=== PATIENT | male | born 1945 | race Caucasian/White ===

== ENCOUNTER 2017-07-24 08:57 | Inpatient (IN) ==
--- NOTE | 2017-07-24 09:22 | Emergency Department Report ---
SOB HPI - General Chief Complaint: Shortness of Breath/Dyspnea Stated Complaint: diff breathing Time Seen by Provider: 07/24/17 09:06 Source: patient, family, old records reviewed Mode of arrival: ambulatory Limitations: no limitations - History of Present Illness 72yo man presents to the ER for dyspnea. Pt has been short of breath for the last two weeks. Has also had a cough, some congestion, and 'tightening of [his] dentures' (which is his usual sign that his allergies are acting up). Pt has not taken any medications to help his sx. He has not seen anyone else, because the doctor he used to have moved; does not go the doctor much anyway. WOP forced him to present to the ER this AM. Complaint: shortness of breath Onset (ago): week(s) (2) Severity: moderate Consistency/Duration: constant Relieving factors: nothing Exacerbating factors: lying flat, movement, coughing Associated symptoms: denies other symptoms Treatment prior to arrival: none - Related Data Home oxygen amount: none Home Medications Medication Instructions Recorded Confirmed Aspirin 325 mg PO DAILY 07/24/17 07/24/17 Allergies Allergy/AdvReac Type Severity Reaction Status Date / Time No Known Allergies Allergy Verified 07/24/17 09:03 Review of Systems All systems: reviewed and negative except as stated Respiratory: Reports: as per HPI, dyspnea PFSH Patient Stated Medical History Other HEENT Yes: wears glasses Other Cardiology Yes: dvt Other Respiratory Yes: allergies Clotting Problems Yes: dvt - Social History Smoking status: Current every day smoker Physical Exam - Limitations Limitations: no limitations - General General appearance: alert, in no apparent distress - Normal Exams: Head:: Normocephalic without trauma Eyes:: Pupils are PERRLA w/ EOMI, No scleral icterus, irritation, or foreign bodies noted Neck:: Full range of motion, without adenopathy Chest/Respirations:: Clear all nelson, with good airflow, and symmetry bilaterally Cardiovascular:: Regular rate and rhythm, without murmur or gallop, Pulses 2+ all extremities, capillary refill, <2 seconds all extremities Lymphatic:: No lymphadenopathy, or lymphedema noted (Compression stockings in place b/l) Musculoskeletal:: No tenderness, or deformity noted Integumentary:: No rashes, hives, or bruising noted Neurological:: Patient is alert, and oriented Psychiatric:: Patient exhibits, appropriate attention - ENT ENT exam: Present: mucous membranes moist, TM's normal bilaterally, normal external ear exam. Absent: normal exam, normal oropharynx (Erythematous with PND) Course - Consultations Consultation #1: Dr. Paz: Admit pt and we'll see him later today. Time: 10:11 Consultation #2: Hospitalist: Dr. Ramos will admit for obs. Time: 10:17 Vital Signs Temperature 97.4 F 07/24/17 09:03 Pulse Rate 94 07/24/17 09:03 Respiratory Rate 24 07/24/17 09:03 Blood Pressure 148/81 H 07/24/17 09:03 Pulse Oximetry 93 07/24/17 09:03 Temperature 97.4 F 07/24/17 09:03 Pulse Rate 81 07/24/17 10:00 Respiratory Rate 19 07/24/17 10:00 Blood Pressure 149/94 H 07/24/17 10:00 Pulse Oximetry 93 07/24/17 10:00 Shortness of Breath/Dyspnea - [facility] Narrative Medical decision making narrative: 72yo man with no routine primary care for the last 3-4 years, since his PCM moved away. Pt has a h/o allergic rhinitis, which he has not been treating through 'allergy season'. EKG and [CXR] c/w COPD. Pt continues to smoke. Pts BNP is elevated to 5000 today; will contact pt's father's chief marketing officer for discussion of inpt w/up and likely cath. - Differential Diagnosis Likely: acute exacerbation of chronic obstructive airways disease, community acquired pneumonia (URI, allergic rhinitis) - Medical Records Attestation: I reviewed the patient's medical records. - Lab Data Attestation: I reviewed the patient's lab results. Result diagrams: 07/24/17 09:21 07/24/17 09:21 Lab Results 07/24/17 07/24/17 Range/Units 09:21 09:21 WBC 6.9 (4.5-11.0) T/MM3 RBC 4.21 L (4.50-5.90) M/MM3 Hgb 14.1 (13.5-17.5) GM/DL Hct 41.8 (41-53) % MCV 99.3 (80-100) UM3 MCH 33.5 (26-34) UUG MCHC 33.7 (31-37) GM/DL RDW Std Deviation 49.4 (36.9-50.2) FL Plt Count 203 (130-400) T/MM3 MPV 9.2 L (9.4-12.4) UM3 Immature Gran % (Auto) 0.3 (0.0-0.5) % Neut % (Auto) 55.0 (33-66) % Lymph % (Auto) 34.6 (23-45) % Wayne % (Auto) 7.7 (0-9.0) % Eos % (Auto) 2.0 (0-4) % Baso % (Auto) 0.4 (0-2) % Neut # (Auto) 3.8 (1.8-7.7) T/MM3 Lymph # (Auto) 2.4 (1-4.8) T/MM3 Wayne # (Auto) 0.5 (0-0.8) T/MM3 Eos # (Auto) 0.1 (0-0.5) T/MM3 Baso # (Auto) 0.0 (0-0.2) T/MM3 Abs Immat Gran (auto) 0.02 (0.00-0.03) T/MM3 Turbidity < 20 (0-20) Sodium 142 (134-144) MEQ/L Potassium 4.6 (3.6-5) MEQ/L Chloride 109 H (98-107) MEQ/L Carbon Dioxide 25 (22-30) MEQ/L Anion Gap 8 (5-15) MEQ/L BUN 13.0 (9-20) MG/DL Creatinine 1.1 (0.8-1.5) MG/DL GFR Calculation 66 BUN/Creatinine Ratio 12 (6-26) RATIO Glucose 102 (75-110) MG/DL Calculated Osmolality 273 (261-280) MOSM/KG Calcium 9.4 (8.4-10.2) MG/DL Icterus Index < 2 (0-7) Troponin I 0.022 (0-0.12) ng/ml B-Natriuretic Peptide 4940 H (0-175) pg/mL Specimen Hemolysis < 15 (0-25) - Radiology Data Attestation: I reviewed the patient's radiology results. FINDINGS: The lungs are clear without evidence of focal abnormal airspace opacity. There is no pleural effusion or pneumothorax. Overlying monitoring leads. The heart size, mediastinal contours and pulmonary vascularity are within normal limits. There is no significant skeletal abnormality. IMPRESSION: No acute cardiopulmonary disease. - EKG Data EKG #1 EKG attestation: Yes: I reviewed and interpreted this EKG. EKG shows normal: sinus rhythm, intervals, QRS complexes [place]/QRS: left axis deviation Voltage: decreased voltage throughout (c/w pulm pattern) Interpretation: nonspecific ST-T wave changes Disposition Clinical Impression: Elevated brain natriuretic peptide (BNP) level COPD (chronic obstructive pulmonary disease) Qualifiers: COPD type: unspecified COPD Qualified Code(s): J44.9 - Chronic obstructive pulmonary disease, unspecified Disposition: 02 To [facility] Print Language: [place] Condition: Stable Prescriptions: No Action Aspirin 325 mg PO DAILY Referrals: Fritz Babin MD [Physician] - Time of Disposition: 10:29 - Seen By: physician
--- NOTE | 2017-07-24 10:04 | XRay Report ---
INDICATION: dyspnea PROCEDURE: CHEST 2-VIEWS UPRIGHT (PA & LAT) Encounter: Initial COMPARISON: None FINDINGS: The lungs are clear without evidence of focal abnormal airspace opacity. There is no pleural effusion or pneumothorax. Overlying monitoring leads. The heart size, mediastinal contours and pulmonary vascularity are within normal limits. There is no significant skeletal abnormality. IMPRESSION: No acute cardiopulmonary disease. .
[2017-07-24] MEDS ORDERED: FUROSEMIDE 40 MG/4 ML INJECTION IVP ONE (10:27)
[2017-07-24] MEDS ORDERED: SALINE FLUSH 10ml SYRINGE IVF PRN (10:28)
[2017-07-24 11:09] VITALS: BMI 26.6
[2017-07-24] MEDS ORDERED: ENOXAPARIN 40 MG/0.4 ML INJECTION SQ SCH (11:45)
[2017-07-24] MEDS ORDERED: ALBUTEROL/IPRATROPIUM 2.5mg-0.5mg/3ml NEB AEROSOL PRN (11:45)
--- NOTE | 2017-07-24 11:50 | History & Physical Report ---
<Peri Otero V - Last Filed: 07/24/17 11:46> History of Present Illness Date: 07/24/17 Chief complaint: dyspnea with exertion HPI: Tyler is a pleasant 72-year-old male who presented to the emergency room this morning for evaluation of dyspnea. He reports has had ongoing dyspnea for the last 2-3 weeks that is worse and present only with exertion. He reports that at rest. Symptoms seem to improve. He reports having some ALLERGY type symptoms, upper airway congestion and some tightening of his dentures which was a new symptom. Denied having any chest pain. GI complaints. Has not had any primary care for the past 2-3 years since primary care provider left [facility]. Other evaluation in the emergency room was completed. CBC was found to be normal , chemistry panel normal, troponin 0.022, proBNP 4940. Chest x-ray revealed no acute cardiopulmonary findings. On arrival to the emergency room room air saturations 93%, pulse 94, respiration rate 24, blood pressure 148/81, temperature 97.4. Given his clinical presentation of dyspnea with exertion and risk factors for cardiovascular disease. The hospitalist services were contacted and accepted patient for observation for further evaluation and treatment. Dr. Guido will be consulted for further cardiac recommendations. Review of Systems All systems PM: 10-point ROS was reviewed, no additional remarkable complaints except - EENMT Nose: Present: allergies - Respiratory Respiratory: Present: dyspnea, dyspnea on exertion PFSH Patient Stated Medical History Vascular disease- Hx peripheral vessel blockage Seasonal ALLERGIES History of DVT History of hepatitis-1966 Chronic tobacco dependence 56 years Surgical History: RLE vascular blockage with graft repair. Colonoscopy Family History: Father-alive at age 92 Currently Mother history of CVA. Sister with heart disease - Social History Smoking status: Current every day smoker Substance use type: does not use Alcohol intake frequency: does not drink Housing: house Household members: spouse Current residence: Apartment/Private Home Social history: No Current PCP (used to see Dr. Babin at [facility]) Medications Home Medications Medication Instructions Recorded Confirmed Type Aspirin 325 mg PO DAILY 07/24/17 07/24/17 History Allergies Allergy/AdvReac Type Severity Reaction Status Date / Time No Known Allergies Allergy Verified 07/24/17 09:03 Exam Vital Signs: Temperature 98.1 F 07/24/17 11:13 Pulse Rate 88 07/24/17 11:30 Respiratory Rate 30 H 07/24/17 11:30 Blood Pressure 148/64 H 07/24/17 11:13 Pulse Oximetry 94 07/24/17 11:13 Telemetry Rhythm: Sinus Rhythm Height/Weight/BMI: Height 1.78 m Weight 84.1 kg Body Mass Index 26.6 - Constitutional Present: no acute distress, well nourished, well developed - Routine HEENT Exam Eye: Present: EOMI ENT: Present: mucous membranes moist, dentition normal - Routine Neck Exam Present: supple - Routine Respiratory Exam Present: CTA bilaterally. Absent: wheezes - Routine Cardiovascular Exam Present: RRR, S1, S2. Absent: murmur - Routine Abdominal Exam Present: soft, normoactive bowel sounds, non distended. Absent: tenderness - Routine Extremities Exam Present: full ROM, normal capillary refill - Routine Back/Spine/Pelvis Exam Back/Spine: Present: full ROM - Routine Skin Exam Present: intact, dry, warm - Routine Neurological Exam Present: alert, oriented X3, CN II-XII intact - Routine Psychiatric Exam Present: normal affect, cooperative Results - Labs CBC & Chem 7: 07/24/17 09:21 07/24/17 09:21 Assessment and Plan (1) Exertional dyspnea Current visit: Yes Status: Acute (2) Tobacco dependence Current visit: Yes Status: Acute DVT Prophylaxis: Lovenox Resuscitation Status: Full Code Assessment and Plan: Impression Exertional dyspnea Chronic Tobacco dependence History of peripheral vascular disease Hx DVT Plan Admit patient to outpatient observation under care of Dr. Ramos for exertional dyspnea. Place patient on cardiac telemetry. Consultation placed with Dr. Paz for further cardiac evaluation. Will obtain echocardiogram on admission as well as CT to rule out pulmonary emboli. Scheduled DuoNeb breathing treatments 4 times a day and Pulmicort twice a day. May use Mucinex as needed. Lovenox subcutaneous daily for DVT prophylaxis. Acapella as well as RT tobacco cessation treatment. This patient has been a tobacco user for the past 56 years. Encourage patient to establish with a primary care provider for outpatient follow-up. Patient does wish to be a full code and this orders written Further orders and plan of care discussed with attending, Dr. Ramos Hospital Course Summary Disclaimer: The visit summary below is not to be considered part of the above Progress Note. Hospital Course: 07/24/17 Impression Exertional dyspnea Chronic Tobacco dependence History of peripheral vascular disease Hx DVT Plan Admit patient to outpatient observation under care of Dr. Ramos for exertional dyspnea. Place patient on cardiac telemetry. Consultation placed with Dr. Paz for further cardiac evaluation. Will obtain echocardiogram on admission as well as CT to rule out pulmonary emboli. Scheduled DuoNeb breathing treatments 4 times a day and Pulmicort twice a day. May use Mucinex as needed. Lovenox subcutaneous daily for DVT prophylaxis. Acapella as well as RT tobacco cessation treatment. This patient has been a tobacco user for the past 56 years. Encourage patient to establish with a primary care provider for outpatient follow-up. Patient does wish to be a full code and this orders written Further orders and plan of care discussed with attending, Dr. Ramos <Nile Ramos - Last Filed: 07/24/17 16:45> History of Present Illness Date: 07/24/17 Exam Vital Signs: Temperature 98.1 F 07/24/17 11:13 Pulse Rate 93 07/24/17 16:00 Respiratory Rate 33 H 07/24/17 16:00 Blood Pressure 148/64 H 07/24/17 11:13 Pulse Oximetry 93 07/24/17 15:45 Results - Labs CBC & Chem 7: 07/24/17 09:21 07/24/17 09:21 Assessment and Plan (1) Exertional dyspnea Current visit: Yes Status: Acute (2) Tobacco dependence Current visit: Yes Status: Acute Assessment and Plan: Impression Bilateral pulmonary emboli Tachycardia Exertional dyspnea Chronic Tobacco dependence History of peripheral vascular disease Hx DVT Have independently interviewed and examined patient. Chart reviewed. Cased discussed with ED physician and my MOTHER'S HELPER. Care plan developed with my supervision ; agree with above. Having exertional dyspnea over the past 3 weeks, increasing over the past 3 days. Not feeling cough or congestion. No pain with breathing. Denies f/c or viral syndrome. Not feeling chest pressure, heaviness, or palpitations. Denies edema, orthopnea, or PND. Breaths well at rest but gets very SOA with any activities. Eating well. No ab pain, nausea, or change in bowel. Seen in ED. CXR without acute infiltrate or edema. Lab benign. Maintaining oxygen saturations at rest. Placed in OBS for further Cardiopulmonary evaluation. CTA did show evidence of multiple bilateral PE. ECHO showing right heart strain. Lungs: decreased, no wheezes or crackles. No cough with expiration. CV: tachy, regular AB: soft nt/nd +BS EXT: no edema MSE: awake alert appropriate Plan: Will change admission status to inpatient secondary to findings of Bilateral PE with right heart strain. Therapeutic dose of Lovenox. Start Coumadin. Cardiac consult for CV evaluation. Monitor tele. Serial enzymes. Neb treatment of DuoNeb and Budesonide. Tobacco cessation. Monitor lab. Hospital Course Summary Disclaimer: The visit summary below is not to be considered part of the above Progress Note.
[2017-07-24] MEDS ORDERED: IOHEXOL 350mg/ml 75ml INJECTION ONE (12:00)
[2017-07-24] MEDS ORDERED: SALINE FLUSH 10ml SYRINGE ONE (12:00)
[2017-07-24] MEDS ORDERED: NS 100 ML ONE (12:00)
[2017-07-24] MEDS: GUAIFENESIN/D-METHORPHAN 600mg/30mg TABLET PO SCH ×2 (12:05→20:01)
--- NOTE | 2017-07-24 13:29 | CT Scan Report ---
Indication: Dyspnea, evaluate for PE PROCEDURE: CT angio pulm emboli: Encounter: Initial Comparison: None Technique: Axial CT pulmonary angiographic phase images were performed through the chest after the administration of intravenous contrast. Coronal and Sagittal MIP reconstructed images were created and reviewed. Automated Exposure Control and Iterative Reconstruction dose reducing techniques were utilized. Contrast: Omnipaque 350 70 mL Findings: Pulmonary arteries: Exam is diagnostic to the subsegmental pulmonary arterial level. Large amount of thrombus seen within the pulmonary arteries bilaterally. This includes thrombus in the distal right main pulmonary artery extending into the interlobar, segmental and subsegmental arteries of the right middle and lower lobe and also thrombus within the segmental and subsegmental arteries of the right upper lobe. Segmental thrombosis and subsegmental emboli also seen within the left upper and lower lobes as well. There is slight reflux of contrast into the hepatic veins and some flattening of the interventricular septum. Other findings: Mild emphysema. No focal pneumonia. No pleural effusion or pneumothorax. No pulmonary masses. The central airways are patent. No axillary or mediastinal adenopathy by CT criteria. Trace pericardial effusion. The upper abdomen shows no acute findings. Impression: Large bilateral pulmonary embolic burden with CT findings suggesting possible early right heart strain. Cardiology evaluation is recommended. Findings were discussed with the ordering clinician Peri Otero at 1325 on July 24, 2017. .
[2017-07-24] MEDS ORDERED: ENOXAPARIN 100 MG/ML INJECTION SQ SCH (13:30)
--- NOTE | 2017-07-24 15:20 | Cardiology Consult Note ---
History of Present Illness Consult date: 07/24/17 <Odalis Trejo 07/24/17 15:26> Requesting physician: Nile Ramos <Odalis Trejo 07/24/17 15:26> Consult reason: shortness of breath <Odalis Trejo 07/24/17 15:26> Chief complaint: dyspnea <Odalis Trejo 07/24/17 15:26> History of present illness: Tyler is a 72-year-old male who presented to the ED this morning for evaluation of dyspnea. He reports has had ongoing dyspnea for the last 2-3 weeks that is worse and present only with exertion. He reports that symptoms seem to improve at rest. He reports having some allergy type symptoms, upper airway congestion and some tightening of his dentures which was a new symptom. Denied having any chest pain. GI complaints. Has not had any primary care for the past 2-3 years since primary care provider left [facility]. Other evaluation in the emergency room was completed. CBC was found to be normal , chemistry panel normal, troponin 0.022, proBNP 4940. Chest x-ray revealed no acute cardiopulmonary findings. On arrival to the ED room air saturations 93%, pulse 94, respiration rate 24, blood pressure 148/81, temperature 97.4. Given his clinical presentation of dyspnea with exertion and risk factors for cardiovascular disease. The hospitalist services were contacted and accepted patient for observation for further evaluation and treatment. Dr. Guido will be consulted for further cardiac recommendations. <Odalis Trejo 07/24/17 16:56> Review of Systems - Constitutional Constitutional: Absent: chills, fatigue, fever(s) <Odalis Trejo 07/24/17 15:26> - EENMT Eyes: Absent: change in vision <Odalis Trejo 07/24/17 15:26> Balance: Absent: vertigo <Odalis Trejo 07/24/17 15:26> Nose: Present: allergies <Odalis Trejo 07/24/17 15:26> Mouth/Throat: Absent: sore throat, scratchy throat <Odalis Trejo 07/24/17 15:26> - Cardiovascular Cardiovascular: Present: dyspnea on exertion. Absent: chest pain, palpitations , syncope <Odalis Trejo 07/24/17 15:26> - Respiratory Respiratory: Present: dyspnea, dyspnea on exertion. Absent: cough <Odalis Trejo 07/24/17 15:26> - Gastrointestinal Gastrointestinal: Absent: abdominal pain, diarrhea, nausea, vomiting <Odalis Trejo 07/24/17 15:26> - Genitourinary Genitourinary: Absent: dysuria <Odalis Trejo 07/24/17 15:26> - Integumentary/Breasts Integumentary: Absent: rash <Odalis Trejo 07/24/17 15:26> - Neurological Neurological: Absent: dizziness <Odalis Trejo 07/24/17 15:26> - Endocrine Endocrine: Absent: palpitations <Odalis Trejo 07/24/17 15:26> - Allergic/Immunologic Allergic/Immunologic: Present: as per HPI <Odalis Trejo 07/24/17 15:26> [facility] Patient Stated Medical History Dental Problems Yes: DENTURES (FULL SET) Hearing Loss Yes Other Cardiology Yes: dvt Other Respiratory Yes: allergies Hepatitis Yes: 1965 <Odalis Trejo 07/24/17 15:26> Surgical History: RLE vascular blockage with graft repair. Colonoscopy < Odalis Trejo 07/24/17 15:26> Family History: Father-alive at age 92 Currently Mother history of CVA. Sister with heart disease <Odalis Trejo 07/24/17 15:26> - Social History Smoking status: Current every day smoker <Odalis Trejo 07/24/17 15:26> Substance use type: does not use <Odalis Trejo 07/24/17 15:26> Alcohol intake frequency: does not drink <Odalis Trejo 07/24/17 15:26> Housing: house <Odalis Trejo 07/24/17 15:26> Household members: spouse <Odalis Trejo 07/24/17 15:26> Current residence: Apartment/Private Home <Odalis Trejo 07/24/17 15:26> Medications Home Medications Medication Instructions Recorded Confirmed Type Aspirin 325 mg PO DAILY 07/24/17 07/24/17 History <Carlo Paz - 07/31/17 15:32> Allergies Allergy/AdvReac Type Severity Reaction Status Date / Time No Known Allergies Allergy Verified 07/24/17 09:03 <Carlo Paz - 07/31/17 15:32> Exam Vital signs: Temperature 97.9 F 07/26/17 07:07 Pulse Rate 80 07/26/17 08:00 Respiratory Rate 18 07/26/17 07:07 Blood Pressure 119/70 07/26/17 07:07 Pulse Oximetry 94 07/26/17 07:07 <Carlo Paz - 07/31/17 15:32> Temperature 98.1 F 07/24/17 11:13 Pulse Rate 88 07/24/17 11:30 Respiratory Rate 30 H 07/24/17 11:30 Blood Pressure 148/64 H 07/24/17 11:13 Pulse Oximetry 94 07/24/17 11:13 <Odalis Trejo 07/24/17 15:26> - Constitutional no acute distress, cooperative <Neil,[facility] 07/24/17 15:26> - Routine HEENT Exam Head: Present: normocephalic [facility] 07/24/17 15:26> ENT: Present: mucous membranes moist <Neil,Amy 07/24/17 15:26> - Routine Neck Exam Absent: JVD, carotid bruit [facility] 07/24/17 15:26> - Routine Chest/Breast/Axilla Exam Chest wall: Absent: tenderness <[facility] 07/24/17 15:26> - Routine Respiratory Exam Present: CTA bilaterally. Absent: wheezes <[facility] 07/24/17 15:26> - Routine Cardiovascular Exam Present: RRR, no murmur. Absent: JVD <NeilOdalis portillo 07/24/17 15:26> - Routine Abdominal Exam Present: soft, normoactive bowel sounds <Neil,[facility] 07/24/17 15:26> - Routine Extremities Exam Present: no edema [facility] 07/24/17 16:56> - Routine Skin Exam Present: intact, dry, warm <Odalis Trejo - 07/24/17 15:26> - Routine Neurological Exam Present: alert, oriented X3 <Odalis Trejo - 07/24/17 15:26> - Routine Psychiatric Exam Present: normal affect, normal thought process <Odalis Trejo - 07/24/17 15: 26> Results 07/26/17 05:03 07/26/17 05:03 <Carlo Paz - 07/31/17 15:32> Intake and Output 07/24/17 07/24/17 07/24/17 06:59 14:59 22:59 Intake Total 300 / 300 Output Total 1550 / 1550 Balance -1250 / -1250 Intake: Oral 300 / 300 Output: Urine 1550 / 1550 Other: Urine Appearance Clear Urine Color Yellow Urine Odor Normal # Voids 1 Weight 185 lb 6.54 oz Patient Weight 07/25/17 06:59 Weight 185 lb 6.54 oz Laboratory Results - last 24 hr 07/24/17 07/24/17 07/24/17 09:21 09:21 14:44 WBC 6.9 RBC 4.21 L Hgb 14.1 Hct 41.8 MCV 99.3 MCH 33.5 MCHC 33.7 RDW Std Deviation 49.4 Plt Count 203 MPV 9.2 L Immature Gran % (Auto) 0.3 Neut % (Auto) 55.0 Lymph % (Auto) 34.6 [place] % (Auto) 7.7 Eos % (Auto) 2.0 Baso % (Auto) 0.4 Neut # (Auto) 3.8 Lymph # (Auto) 2.4 [place] # (Auto) 0.5 Eos # (Auto) 0.1 Baso # (Auto) 0.0 Abs Immat Gran (auto) 0.02 Turbidity < 20 Sodium 142 Potassium 4.6 Chloride 109 H Carbon Dioxide 25 Anion Gap 8 BUN 13.0 Creatinine 1.1 GFR Calculation 66 BUN/Creatinine Ratio 12 Glucose 102 Calculated Osmolality 273 Calcium 9.4 Icterus Index < 2 Troponin I 0.022 0.023 B-Natriuretic Peptide 4940 H Specimen Hemolysis < 15 < 15 <Odalis Trejo - 07/24/17 15:26> - Imaging and Cardiology Echo: pending <Odalis Trejo - 07/24/17 15:26> Imaging & Cardiology Narrative: Date of Exam: 07/24/17 Ordering Provider: Peri Otero APRN Type of Exam(s): CT angio pulm emboli Reason for Exam(s): r/o PE Indication: Dyspnea, evaluate for PE PROCEDURE: CT angio pulm emboli: Encounter: Initial Comparison: None Technique: Axial CT pulmonary angiographic phase images were performed through the chest after the administration of intravenous contrast. Coronal and Sagittal MIP reconstructed images were created and reviewed. Automated Exposure Control and Iterative Reconstruction dose reducing techniques were utilized. Contrast: Omnipaque 350 70 mL Findings: Pulmonary arteries: Exam is diagnostic to the subsegmental pulmonary arterial level. Large amount of thrombus seen within the pulmonary arteries bilaterally. This includes thrombus in the distal right main pulmonary artery extending into the interlobar, segmental and subsegmental arteries of the right middle and lower lobe and also thrombus within the segmental and subsegmental arteries of the right upper lobe. Segmental thrombosis and subsegmental emboli also seen within the left upper and lower lobes as well. There is slight reflux of contrast into the hepatic veins and some flattening of the interventricular septum. Other findings: Mild emphysema. No focal pneumonia. No pleural effusion or pneumothorax. No pulmonary masses. The central airways are patent. No axillary or mediastinal adenopathy by CT criteria. Trace pericardial effusion. The upper abdomen shows no acute findings. Impression: Large bilateral pulmonary embolic burden with CT findings suggesting possible early right heart strain. Cardiology evaluation is recommended. Findings were discussed with the ordering clinician Peri Otero at 1325 on July 24, 2017. Date of Exam: 07/24/17 Ordering Provider: Xander Dugan DO Type of Exam(s): XR chest 2V Reason for Exam(s): dyspnea INDICATION: dyspnea PROCEDURE: CHEST 2-VIEWS UPRIGHT (PA & LAT) Encounter: Initial COMPARISON: None FINDINGS: The lungs are clear without evidence of focal abnormal airspace opacity. There is no pleural effusion or pneumothorax. Overlying monitoring leads. The heart size, mediastinal contours and pulmonary vascularity are within normal limits. There is no significant skeletal abnormality. IMPRESSION: No acute cardiopulmonary disease. <Odalis Trejo - 07/25/17 17:25> EKG interpretations - Dysrhythmias Sinus rhythms and dysrhythmias: sinus rhythm <Odalis Trejo - 07/24/17 15:26> - Blocks, axis, hypertrophy, ST abn QRS axis and voltage: left axis deviation (-30 to -90) <NeilOdalis portillo - 07/24 15:26> Assessment and Plan - Attestation Attestation Narrative: 07/29/17 13:29 Recommendation After examining the patient I agree with the above assessment. I am involved in the formulation of the patient's plan of care. <Carlo Paz - 07/29/17 13:29> - Assessment and Plan (1) Exertional dyspnea Status: Acute (2) Tobacco dependence Status: Acute (3) Pulmonary embolism Status: Acute <Carlo Paz - 07/31/17 15:32> (1) Pulmonary embolism Status: Acute Multiple bilateral pulmonary emboli. - Right ventricle dilated on ECHO. - Start Xarelto 15mg BID x 21 days then 20mg daily for at least 6 months, senior care if tolerates without bleeding and can afford land survey technician. (Spoke with patient and his and they would prefer this over Coumadin and they are aware of increased cost) - Will provide samples and Co-pay card (2) Exertional dyspnea Status: Acute (3) Tobacco dependence Status: Acute <Odalis Trejo - 07/25/17 17:23> Hospital Course Summary Disclaimer: The visit summary below is not to be considered part of the above Progress Note. <Carlo Paz - 07/31/17 15:32> The visit summary below is not to be considered part of the above Progress Note. <Odalis Trejo - 07/24/17 15:26> Hospital Course: 07/24/17 Impression Exertional dyspnea Chronic Tobacco dependence History of peripheral vascular disease Hx DVT Plan Admit patient to outpatient observation under care of Dr. Ramos for exertional dyspnea. Place patient on cardiac telemetry. Consultation placed with Dr. Paz for further cardiac evaluation. Will obtain echocardiogram on admission as well as CT to rule out pulmonary emboli. Scheduled DuoNeb breathing treatments 4 times a day and Pulmicort twice a day. May use Mucinex as needed. Lovenox subcutaneous daily for DVT prophylaxis. Acapella as well as RT tobacco cessation treatment. This patient has been a tobacco user for the past 56 years. Encourage patient to establish with a primary care provider for outpatient follow-up. Patient does wish to be a full code and this orders written Further orders and plan of care discussed with attending, Dr. Ramos 07/24/17 Cardiology PE: Multiple bilateral pulmonary emboli. - Right ventricle dilated on ECHO. - Start Xarelto 15mg BID x 21 days then 20mg daily for at least 6 months, land survey technician if tolerates without bleeding and can afford senior care. (Spoke with patient and his and they would prefer this over Coumadin and they are aware of increased cost) - Will provide samples and Co-pay card Thank you for allowing us to participate in the care of this patient. <Odalis Trejo - 07/25/17 17:25>
[2017-07-24] MEDS: ALBUTEROL/IPRATROPIUM 2.5mg-0.5mg/3ml NEB AEROSOL SCH ×3 (15:39→19:44)
[2017-07-24] MEDS: BUDESONIDE INH.SOLN 0.5mg/2ml NEB AEROSOL SCH ×2 (15:40→19:44)
[2017-07-24] MEDS ORDERED: POLYETHYL GLYCOL 3350 17gm PACKET PO PRN (16:20)
[2017-07-24] MEDS ORDERED: BISACODYL 10 MG SUPPOSITORY RECTALLY PRN (16:20)
[2017-07-24] MEDS ORDERED: ACETAMINOPHEN 325 MG TABLET PO PRN (16:21)
[2017-07-24] MEDS ORDERED: WARFARIN 5 MG TABLET PO ONE (17:30)
[2017-07-24] MEDS: RIVAROXABAN 15 MG PO SCH (17:59)
[2017-07-25] MEDS: ALBUTEROL/IPRATROPIUM 2.5mg-0.5mg/3ml NEB AEROSOL SCH ×4 (07:22→19:30)
[2017-07-25] MEDS: BUDESONIDE INH.SOLN 0.5mg/2ml NEB AEROSOL SCH ×2 (07:23→19:30)
[2017-07-25] MEDS: GUAIFENESIN/D-METHORPHAN 600mg/30mg TABLET PO SCH ×2 (08:51→20:10)
[2017-07-25] MEDS: RIVAROXABAN 15 MG PO SCH ×2 (08:52→17:06)
[2017-07-25] MEDS ORDERED: ENOXAPARIN 120 MG/0.8 ML INJECTION SQ SCH (09:00)
--- NOTE | 2017-07-25 12:04 | Progress Note ---
Subjective: Resting comfortably this morning, has not had complaints overnight. coming to visit, discussed with her as well. No fevers. Started on xarelto per cardiology and tolerating well thus far. Objective Vital signs: Temperature 97.6 F 07/25/17 07:23 Pulse Rate 84 07/25/17 07:24 Respiratory Rate 16 07/25/17 11:22 Blood Pressure 125/89 07/25/17 07:23 Pulse Oximetry 94 07/25/17 11:22 Rhythm: Normal Sinus Rhythm Height/Weight/BMI: Weight 81.6 kg - Constitutional Present: no acute distress Comments: resting comfortably, awakens and then drifts back to sleep - Routine HEENT Exam Head: Present: normocephalic, atraumatic Eye: Present: EOMI, PERRL ENT: Present: mucous membranes moist, oropharynx clear - Routine Respiratory Exam Present: CTA bilaterally. Absent: accessory muscle use - Routine Cardiovascular Exam Present: RRR. Absent: murmur - Routine Abdominal Exam Present: soft, non distended, non tender - Routine Extremities Exam Present: normal capillary refill. Absent: cyanosis, edema - Routine Skin Exam Present: intact, dry. Absent: rash - Routine Lymphatic Exam Lymphatic: Absent: lymphedema Results - Labs CBC & Chem 7: 07/25/17 05:10 07/25/17 05:10 Assessment and Plan DVT Prophylaxis: Xarelto Resuscitation Status: Full Code Assessment and Plan: Impression Bilateral pulmonary emboli Tachycardia Exertional dyspnea Chronic Tobacco dependence History of peripheral vascular disease Hx DVT Plan: Continue xarelto at 15 mg BID Monitor on room air today and increase ambulation to ensure resp status stable Continue to discuss tobacco cessation Plan for outpatient f/u with cardiology after discharge Continue observation status today; likely can DC home tomorrow if tolerating the medication and resp status stable Repeat CBC in AM to ensure stable Hb Hospital Course Summary Disclaimer: The visit summary below is not to be considered part of the above Progress Note. Hospital Course: 07/24/17 Impression Exertional dyspnea Chronic Tobacco dependence History of peripheral vascular disease Hx DVT Plan Admit patient to outpatient observation under care of Dr. Ramos for exertional dyspnea. Place patient on cardiac telemetry. Consultation placed with Dr. Paz for further cardiac evaluation. Will obtain echocardiogram on admission as well as CT to rule out pulmonary emboli. Scheduled DuoNeb breathing treatments 4 times a day and Pulmicort twice a day. May use Mucinex as needed. Lovenox subcutaneous daily for DVT prophylaxis. Acapella as well as RT tobacco cessation treatment. This patient has been a tobacco user for the past 56 years. Encourage patient to establish with a primary care provider for outpatient follow-up. Patient does wish to be a full code and this orders written Further orders and plan of care discussed with attending, Dr. Ramos 07/25/17 12:04 07/25/17 Continue xarelto at 15 mg BID Monitor on room air today and increase ambulation to ensure resp status stable Continue to discuss tobacco cessation Plan for outpatient f/u with cardiology after discharge Continue observation status today; likely can DC home tomorrow if tolerating the medication and resp status stable Repeat CBC in AM to ensure stable Hb
[2017-07-25 23:32] VITALS: RESP 18
[2017-07-26] MEDS: ALBUTEROL/IPRATROPIUM 2.5mg-0.5mg/3ml NEB AEROSOL SCH (06:50)
[2017-07-26] MEDS: BUDESONIDE INH.SOLN 0.5mg/2ml NEB AEROSOL SCH (06:51)
[2017-07-26 07:08] VITALS: BP 119/70; TEMP 97.9; O2SAT 94
[2017-07-26 08:12] VITALS: PULSE 80
[2017-07-26] MEDS: GUAIFENESIN/D-METHORPHAN 600mg/30mg TABLET PO SCH (08:24)
[2017-07-26] MEDS: RIVAROXABAN 15 MG PO SCH (08:25)
--- NOTE | 2017-07-26 09:55 | Discharge Instructions ---
Discharge Plan - Med Rec/Dispo Referrals/Follow Up: Carlo Paz MD [Physician] - 2 Weeks Additional Instructions: It would be in your best interest to choose a primary care provider and establish care for your medical problems. If you need a list of available physicians in the area we can provide that for you. Prescriptions: New Rivaroxaban [Xarelto] 20 mg PO WS #30 tab Rivaroxaban [Xarelto] 15 mg PO BIDWM tablet Ipatropium/Albuterol [Combivent Respimat Inhaler] 1 puff INH QID #1 inh Budesonide Inhalation [Pulmicort Inhalation] 0.5 mg AEROSOL RTBID #1 vial Metoprolol Tartrate [Lopressor] 12.5 mg PO BIDWM #60 tab Continue Aspirin 325 mg PO DAILY Discharge Instructions/Outpatient Orders: Final Provider Discharge Instructions Location: Determined By Patient - Disposition 01 Discharged Home, Self-Care
--- NOTE | 2017-07-26 10:06 | Discharge Summary ---
Discharge Information Date of admission: 07/24/17 16:17 Anticipated date of discharge: 07/26/17 Attending Physician: Nile Ramos MD Consults: 07/24/17 Pharmacy Consult [CONS] Routine Pharmacy Consult: Coumadin/Warfarin Comment: PE - I ordered coumadin for 07/24 & an INR for 07/25 - Discharge Diagnosis (1) COPD (chronic obstructive pulmonary disease) Status: Chronic (2) Elevated brain natriuretic peptide (BNP) level Status: Acute (3) Exertional dyspnea Status: Acute (4) Pulmonary embolism Status: Acute Discharge Diagnosis: Bilateral PE (5) Tobacco dependence Status: Acute - Laboratory Labs: 07/26/17 05:03 07/26/17 05:03 - Radiology Radiology: Date of Exam: 07/24/17 Ordering Provider: Peri Otero APRN Type of Exam(s): CT angio pulm emboli Reason for Exam(s): r/o PE Indication: Dyspnea, evaluate for PE PROCEDURE: CT angio pulm emboli: Encounter: Initial Comparison: None Technique: Axial CT pulmonary angiographic phase images were performed through the chest after the administration of intravenous contrast. Coronal and Sagittal MIP reconstructed images were created and reviewed. Automated Exposure Control and Iterative Reconstruction dose reducing techniques were utilized. Contrast: Omnipaque 350 70 mL Findings: Pulmonary arteries: Exam is diagnostic to the subsegmental pulmonary arterial level. Large amount of thrombus seen within the pulmonary arteries bilaterally. This includes thrombus in the distal right main pulmonary artery extending into the interlobar, segmental and subsegmental arteries of the right middle and lower lobe and also thrombus within the segmental and subsegmental arteries of the right upper lobe. Segmental thrombosis and subsegmental emboli also seen within the left upper and lower lobes as well. There is slight reflux of contrast into the hepatic veins and some flattening of the interventricular septum. Other findings: Mild emphysema. No focal pneumonia. No pleural effusion or pneumothorax. No pulmonary masses. The central airways are patent. No axillary or mediastinal adenopathy by CT criteria. Trace pericardial effusion. The upper abdomen shows no acute findings. Impression: Large bilateral pulmonary embolic burden with CT findings suggesting possible early right heart strain. Cardiology evaluation is recommended. Findings were discussed with the ordering clinician Peri Otero at 1325 on July 24, 2017. . History of Present Illness HPI: Tyler is a pleasant 72-year-old male who presented to the emergency room this morning for evaluation of dyspnea. He reports has had ongoing dyspnea for the last 2-3 weeks that is worse and present only with exertion. He reports that at rest. Symptoms seem to improve. He reports having some ALLERGY type symptoms, upper airway congestion and some tightening of his dentures which was a new symptom. Denied having any chest pain. GI complaints. Has not had any primary care for the past 2-3 years since primary care provider left [facility]. Other evaluation in the emergency room was completed. CBC was found to be normal , chemistry panel normal, troponin 0.022, proBNP 4940. Chest x-ray revealed no acute cardiopulmonary findings. On arrival to the emergency room room air saturations 93%, pulse 94, respiration rate 24, blood pressure 148/81, temperature 97.4. Given his clinical presentation of dyspnea with exertion and risk factors for cardiovascular disease. The hospitalist services were contacted and accepted patient for observation for further evaluation and treatment. Dr. Guido will be consulted for further cardiac recommendations. Objective Vital signs: Temperature 97.9 F 07/26/17 07:07 Pulse Rate 80 07/26/17 08:00 Respiratory Rate 18 07/26/17 07:07 Blood Pressure 119/70 07/26/17 07:07 Pulse Oximetry 94 07/26/17 07:07 Rhythm: Normal Sinus Rhythm Height/Weight/BMI: Weight 81.7 kg - Constitutional Present: no acute distress, well nourished, well developed, cooperative - Routine HEENT Exam Head: Present: normocephalic, atraumatic Eye: Present: EOMI, PERRL ENT: Present: mucous membranes moist, oropharynx clear - Routine Respiratory Exam Present: CTA bilaterally. Absent: accessory muscle use - Routine Cardiovascular Exam Present: RRR. Absent: murmur - Routine Abdominal Exam Present: soft, non distended, non tender - Routine Extremities Exam Absent: cyanosis, edema - Routine Musculoskeletal Exam Musculoskeletal: Present: normal strength, no tenderness - Routine Skin Exam Present: intact, dry, warm. Absent: rash - Routine Neurological Exam Present: alert, oriented X3, normal speech - Routine Psychiatric Exam Present: normal affect, normal thought process Hospital Course This is a general summary of the patient's hospital course. For more details refer to the complete medical record. Hospital course: 07/24/17 Impression Exertional dyspnea Chronic Tobacco dependence History of peripheral vascular disease Hx DVT Plan Admit patient to outpatient observation under care of Dr. Ramos for exertional dyspnea. Place patient on cardiac telemetry. Consultation placed with Dr. Paz for further cardiac evaluation. Will obtain echocardiogram on admission as well as CT to rule out pulmonary emboli. Scheduled DuoNeb breathing treatments 4 times a day and Pulmicort twice a day. May use Mucinex as needed. Lovenox subcutaneous daily for DVT prophylaxis. Acapella as well as RT tobacco cessation treatment. This patient has been a tobacco user for the past 56 years. Encourage patient to establish with a primary care provider for outpatient follow-up. Patient does wish to be a full code and this orders written Further orders and plan of care discussed with attending, Dr. Ramos 07/24/17 Cardiology PE: Multiple bilateral pulmonary emboli. - Right ventricle dilated on ECHO. - Start Xarelto 15mg BID x 21 days then 20mg daily for at least 6 months, fpc if tolerates without bleeding and can afford computer terminal operator. (Spoke with patient and his and they would prefer this over Coumadin and they are aware of increased cost) - Will provide samples and Co-pay card On 07/25 the patient was sleepy and still having quite a bit of dyspnea although weaned to room air. He was kept for further monitoring on telemetry and maintained room air, was able to ambulate in the halls later in the day. This morning, on 07/26, he is feeling much better and feels ready to DC home. I have recommended he establish care with a PCP in the area for his medical needs. He will follow up with Dr. Paz and has been provided samples of xarelto. He will continue on the med at 15 mg BID until 08/14 and then go to 20 mg daily. Telemetry has been unremarkable, dyspnea improving. He is being discharged home with his ; will prescribe combivent inhaler and inhaled steroid as well as his metoprolol and xarelto. Time spent with patient: discharge greater than 30 minutes DVT Prophylaxis: Xarelto Discharge Plan - Med Rec/Dispo Referrals/Follow Up: Carlo Paz MD [Physician] - 2 Weeks Additional Instructions: It would be in your best interest to choose a primary care provider and establish care for your medical problems. If you need a list of available physicians in the area we can provide that for you. Prescriptions: New Rivaroxaban [Xarelto] 20 mg PO WS #30 tab Rivaroxaban [Xarelto] 15 mg PO BIDWM tablet Ipatropium/Albuterol [Combivent Respimat Inhaler] 1 puff INH QID #1 inh Budesonide Inhalation [Pulmicort Inhalation] 0.5 mg AEROSOL RTBID #1 vial Metoprolol Tartrate [Lopressor] 12.5 mg PO BIDWM #60 tab Continue Aspirin 325 mg PO DAILY Discharge Instructions/Outpatient Orders: Final Provider Discharge Instructions Location: Determined By Patient - Disposition 01 Discharged Home, Self-Care
--- NOTE | 2017-07-28 14:06 | Echocardiogram ---
DATE OF PROCEDURE July 24, 2017 REFERRING PHYSICIAN Nile Ramos MD This is a two-dimensional echo with spectral Doppler, color-flow and M-mode. It was obtained in a patient with dyspnea. Left atrial dimension is normal. Left ventricle end-diastolic dimension is normal. Left ventricle wall thickness increased. LV systolic function is normal with ejection fraction of 56%. Right atrium is dilated. Right ventricle is dilated. Aortic root dimension is normal. Mitral valve appears to be sclerotic with no stenosis. Mild mitral regurgitation is present. Aortic valve appears to be normal. Tricuspid valve shows mild tricuspid regurgitation with moderate pulmonary hypertension with estimated pulmonary artery systolic pressure of 44. Pulmonary valve shows trace of pulmonary insufficiency. There is no pericardial effusion. IMPRESSION 1. Normal LV systolic function with ejection fraction of 56%. 2. Left ventricular hypertrophy. 3. Right atrial dilation. 4. Right ventricular dilation. 5. Mitral sclerosis with mild mitral regurgitation. 6. Mild tricuspid regurgitation with moderate pulmonary hypertension with estimated pulmonary artery systolic pressure of 44. 7. Trace of pulmonary insufficiency. MTDD
[2017-08-15] MEDS ORDERED: RIVAROXABAN 20 MG TABLET PO SCH (17:30)
== END 2017-07-26 10:30 | disposition home or self-care (01) | DRG 176 ==
LOC: SRG 08:57 → ED 08:57 → SRG 10:55
PROVIDERS: ADMIT Hospitalist; ATTEND Hospitalist